=== PATIENT | female | born 1995 | race Two or more races ===

== ENCOUNTER 2019-06-30 14:15 | Inpatient (IN) | payer OTHER ==
[~2019-06-30] VITALS: Ht 160 cm; Wt 64.0 kg
[2019-07-08] MEDS ORDERED: PRENATAL TABLE1 EAC1 PO (12:47)
== END 2019-07-11 10:59 | disposition home or self-care (01) | DRG 807 ==
LOC: LDR 07-08 12:22 → OB/GYN 07-09 14:15
PROVIDERS: ADMIT Obstetrics & Gynecology
PROC: 10E0XZZ Delivery of Products of Conception, External Approach (ICD-10-PCS; principal; 2019-07-08)
PROC: 0W8NXZZ Division of Female Perineum, External Approach (ICD-10-PCS; 2019-07-08)
PROC: 10907ZC Drainage of Amniotic Fluid, Therapeutic from Products of Conception, Via Natural or Artificial Opening (ICD-10-PCS; 2019-07-08)
PROC: 3E033VJ Introduction of Other Hormone into Peripheral Vein, Percutaneous Approach (ICD-10-PCS; 2019-07-08)
PROC: 4A1HXCZ Monitoring of Products of Conception, Cardiac Rate, External Approach (ICD-10-PCS; 2019-07-08)
DX: O80 Encounter for full-term uncomplicated delivery (principal); Z37.0 Single live birth; Z3A.39 39 weeks gestation of pregnancy

== ENCOUNTER 2022-05-31 10:30 | Day surgery (SDC) | payer OTHER ==
[~2022-05-31] VITALS: Ht 160 cm; Wt 67.6 kg
[~2022-05-31 10:30] MED LIST: CLARITIN10 MG PO; FOLIC ACID20 MG PO; IRON236 MG PO; PRENATAL TABLE1 EAC1 PO; TREXIMET 85-501 EACH PO
== END 2022-05-31 22:20 | disposition home or self-care (01) ==
LOC: CIR.AMB 10:30
PROVIDERS: ATTEND Obstetrics & Gynecology
DX: Z30.2 Encounter for sterilization (principal); Z20.822 Contact with and (suspected) exposure to COVID-19